=== PATIENT | female | born 1995 | race Two or more races ===

== ENCOUNTER 2024-05-02 19:43 | Emergency (ER) | payer OTHER ==
[~2024-05-02] VITALS: Ht 167.6 cm; Wt 54.0 kg
--- NOTE | 2024-05-02 20:14 | ED.PDOC ---
General HPI Comments A 29 year old female presents to the ED with a chief complaint of painful urination onset 3 days. Patient states she began experiencing painful urination with a burning sensation 3 days ago, fever yesterday. Patient noticed vaginal discharge today as well as blood in urine. She experienced similar symptoms about 6 months ago. Denies any past medical history as well as back pain, flank pain, nausea, vomiting, diarrhea, chest pain and shortness of breath. No other symptoms or modifying factors present at this time. Time Seen by MD: 20:01 Reviewed notes: Medications, Allergies Allergies: Coded Allergies: NO KNOWN ALLERGIES (Unverified , 05/02/24) Information Source: Patient Mode of Arrival: Ambulatory Severity: Moderate Timing: Days Duration: Since onset Prehospital treatment: None Symptoms: Dysuria, Hematuria History of: UTI Location: Suprapubic Modifying factors: None associated signs and symptoms: Fever, Dysuria, Hematuria Vital Signs Vital Signs Date Time Temp Pulse Resp B/P (MAP) Pulse Ox O2 Delivery O2 Flow Rate FiO2 05/02/24 22:53 97.4 87 15 111/71 (84) 99 97.4 Physical Exam General: Awake, alert and oriented. No acute distress. Skin: Skin in warm, dry and intact. Appropriate color for ethnicity. Nailbeds pink with no cyanosis. HEENT: The head is normocephalic and atraumatic. Conjunctivae are clear without exudates or hemorrhage. Sclera is non-icteric. EOM are intact. No signs of nystagmus. Eyelids are normal in appearance without swelling or lesions. Oral mucosa is pink and moist Neck: The neck is supple with normal range of motion. No JVD. Cardiac: Heart rate and rhythm are normal. No murmurs, gallops, or rubs are auscultated. Respiratory: No signs of respiratory distress. Lung sounds are clear in all lobes bilaterally without rales, ronchi, or wheezes. Abdominal: Abdomen is soft, non-tender without distention. Bowel sounds are present and normoactive in all four quadrants. No CVA tenderness Neurological: The patient is awake, alert and oriented to person, place, and time with normal speech. Speech is clear. There is no facial asymmetry. Psychiatric: Appropriate mood and affect. Good judgement and insight. No visual or auditory hallucinations. Review of Systems: REVIEW OF SYSTEMS: No fever, no chills, or fatigue HEENT: No sore throat, no earache, no congestion, no neck pain. Cardiac: No chest pain. No palpitations. Lungs: No shortness of breath, no cough. GI: No nausea, no vomiting, no diarrhea, no constipation, no abdominal pain : Positive dysuria, frequency, or urgency. Positive hematuria. Positive vaginal discharge Musculoskeletal: No joint pain , no joint swelling, no extremity edema. Skin: No rash, no itching. Neuro: No headache, no dizziness, no weakness Past Medical History PAST MEDICAL HISTORY: Denies Surgical History: Denies all surgeries [employer] History: No Pertinent [employer] History Family History Family History: Unknown Social History Smoker: Non-Smoker Alcohol: Denies ETOH Use Drugs: Denies Drug Use Lives In: Home Was a procedure done? Was a procedure done?: No Differential Diagnosis Kidney stone (Female): Bowel obstruction, Ovarian torsion, Pyelonephritis, Renal failure, Urinary obstruction, Urolithiasis, Other (Vaginitis, S2 GI) Kidney stone (Male): Urinary tract infection X-Ray, Labs, Meds, VS Vital Signs Date Time Temp Pulse Resp B/P (MAP) Pulse Ox O2 Delivery O2 Flow Rate FiO2 05/02/24 22:53 97.4 87 15 111/71 (84) 99 97.4 05/02/24 20:05 98.9 89 20 122/79 (93) 99 Lab Test 05/02/24 20:34 05/02/24 20:30 Range/Units Urine Color Dark-orange Yellow Urine Clarity Turbid H Clear Urine pH 5.5 5.0-9.0 Urine Specific [place] 1.022 1.001-1.035 Urine Protein 1+ H Negative Urine Ketones Negative Negative Urine Blood 3+ H Negative /uL Urine Nitrite 2+ H Negative Urine Bilirubin 1+ H Negative Urine Urobilinogen 3 H Negative mg/dL Urine Leukocyte Esterase 2+ Negative /uL Urine RBC 111 0 - 4 /hpf Urine WBC 162 0 - 5 /hpf Urine Squamous Epithelial Cells Few <5 /hpf Urine Bacteria Few H None Seen /hpf Urine Mucus Few None Seen Urine Glucose Normal Normal mg/dL Urine Test Negative Negative Chlamydia trachomatis (LUCERO) Pending Neisseria gonorrhoeae (LUCERO) Pending White Blood Count 5.9 4.4-10.8 10^3/uL Red Blood Count 4.05 4.0-5.20 10^6/uL Hemoglobin 12.4 12.2-16.2 g/dL Hematocrit 36.6 36.0-46.0 % Mean Corpuscular Volume 90.5 80.0-100.0 fL Mean Corpuscular Hemoglobin 30.6 28.0-32.0 pg Mean Corpuscular Hemoglobin Concent 33.8 32.0-36.0 g/dL Red Cell Distribution Width 13.1 11.8-14.3 % Platelet Count 259 140-450 10^3/uL Mean Platelet Volume 7.0 6.9-10.8 fL Neutrophils (%) (Auto) 50.2 37.0-80.0 % Lymphocytes (%) (Auto) 36.9 10.0-50.0 % Monocytes (%) (Auto) 9.9 0.0-12.0 % Eosinophils (%) (Auto) 2.5 0.0-7.0 % Basophils (%) (Auto) 0.5 0.0-2.0 % Neutrophils # (Auto) 3.0 1.6-8.6 10 ^3/uL Lymphocytes # (Auto) 2.2 0.4-5.4 10 ^3/uL Monocytes # (Auto) 0.6 0-1.3 10 ^3/uL Eosinophils # (Auto) 0.2 0-0.8 10 ^3/uL Basophils # (Auto) 0 0-0.2 10 ^3/uL Nucleated Red Blood Cells 0.1 % Sodium Level 140 136-145 mmol/L Potassium Level 3.6 3.5-5.1 mmol/L Chloride Level 108 H 98-107 mmol/L Carbon Dioxide Level 26 20-31 mmol/L Anion Gap 6 5-15 Blood Urea Nitrogen 10 9-23 mg/dL Creatinine 0.63 0.550-1.02 mg/dL Glomerular Filtration Rate Calc 122 >90 mL/min BUN/Creatinine Ratio 15.9 10.0-20.0 Serum Glucose 97 74-106 mg/dL Calcium Level 9.6 8.7-10.4 mg/dL Total Bilirubin 0.2 0.2-1.0 mg/dL Aspartate Amino Transferase (AST) 13 13-40 U/L Alanine Aminotransferase (ALT) 15 7-40 U/L Alkaline Phosphatase 73 46-116 U/L Total Protein 7.6 5.7-8.2 g/dL Albumin 4.6 3.2-4.8 g/dL Time of 1ST Reevaluation: 20:31 Reevaluation 1ST: Unchanged Patient Education/Counseling: Diagnosis, Treatment, Prognosis Family Education/Counseling: No Family Present Additional Information HI Data Complexity Ordered Test: LAB, MARVIN, PHA reviewed results: CBC, CMP, PREGUA, UA, Routine bacteria culture, chlamydia Discuss tx/results: patient, medical personnel Departure 1 Departure Time of Disposition: 23:04 Impression: Primary Impression: Urinary tract infection Disposition: 01 HOME / SELF CARE / HOMELESS Condition: Stable Additional Instructions: [employer]ARTIN [employer] Urgencias Instrucciones: Thais atentamente todas las instrucciones proporcionadas en ania paquete. Aunque le hayan dado el jose martin del Departamento de Emergencias, esto no significa que tenga un "certificado de buena jorge". Es posible que ests en proceso de desarrollar mauricio enfermedad grave. Es por eso que debe regresar al servicio de urgencias sin falta si presenta algn sntoma nuevo o que empeora (especialmente si alla sntomas incluyen dolor en el pecho, dificultad para respirar, dolor abdominal, fiebre, dolor de rasta, confusin, dificultad para greg o caminar). Tambin es muy importante que consulte a un mdico de atencin primaria dentro de los prximos 3 a 5 flores para realizar un seguimiento. Si no tiene un mdico habitual Llame para programar mauricio wilson con un nuevo proveedor de atencin primaria. [phone] Dr[address] In[address] o Dr[address] Sanchez Mikaela Si no puede conseguir mauricio wilson, regrese al servicio de urgencias para mauricio nueva evaluacin. Educacin para el paciente: Infecciones de las vas urinarias en adultos (Conceptos Bsicos) ? Riones Son dos rganos con forma de frijol que filtran la reji para producir orina. ? Vejiga Es un rgano con forma de globo que almacena la orina. ? Urteres Son dos tubos que llevan la orina desde los riones a la vejiga. ? Uretra Es el tubo que lleva la orina desde la vejiga al exterior del cuerpo. Las infecciones en la vejiga son ms comunes que las infecciones en los riones. Se producen cuando entran bacterias en la uretra y se desplazan hacia arriba, hasta la vejiga. El trmino mdico para referirse a mauricio infeccin en la vejiga es "cistitis". La mayora de las veces, cuando las personas hablan de mauricio infeccin de las vas urinarias, se refieren a mauricio infeccin de la vejiga. ? Las infecciones de rin ocurren cuando las bacterias se desplazan incluso ms arriba, hasta los riones. El trmino mdico para referirse a mauricio infeccin en los riones es ? Tanto las infecciones en la vejiga gilda en los riones son ms comunes en las personas de sexo femenino que en las de sexo masculino. El riesgo de infecciones de las vas urinarias tambin es mayor en personas que tienen un catter urinario. Un catter es un tubo flannery y flexible que drena orina de la vejiga. Podra usarse en personas hospitalizadas que no pueden orinar de manera normal. Cules son los sntomas de mauricio infeccin en la vejiga? Los sntomas son, entre otros: Cules son los sntomas de mauricio infeccin en el rin? Los sntomas de mauricio infeccin en el rin pueden incluir los mismos sntomas urinarios que se presentan con mauricio infeccin en la vejiga. Adems, las infecciones en el rin pueden causar: Es necesario que me realice pruebas? Jez vez. Si piensa que podra tener mauricio infeccin de las vas urinarias, llame a giles mdico o enfermero. En ocasiones, puede determinar si usted tiene mauricio infeccin de las vas urinarias con solo conocer alla sntomas. Giles mdico o enfermero podra hacerle mauricio simple prueba de orina en el consultorio. Tambin es posible que le gerald mauricio prueba de orina ms compleja para detectar bacterias. "pielonefritis". Es ms grave que mauricio infeccin de la vejiga, y puede provocar otros problemas graves si no se trata adecuadamente. ? Dolor o ardor al orinar ? Necesidad de orinar con frecuencia ? Necesidad de orinar en forma repentina o urgente ? Reji en la orina ? Fiebre ? Dolor de espalda ? Nuseas o vmitos [facility] [employer] se tratan las infecciones de las vas urinarias? La mayora de las infecciones de las vas urinarias se tratan con pldoras de antibiticos. Actan matando los grmenes que causan la infeccin. Alla sntomas deberan mejorar al da siguiente de estar tomando antibiticos, mila debe terminar todas las pldoras. De lo contrario, la infeccin podra regresar. Si es necesario, tambin puede ashia mauricio medicina para anestesiar giles vejiga. Esta medicina disminuye el dolor que causan las infecciones de las vas urinarias. Tambin reduce el deseo de orinar. Qu pasa si sufro infecciones frecuentes en la vejiga? [place]mira, consulte a giles mdico o enfermero para verificar si realmente se trata de infecciones en la vejiga. Los sntomas de mauricio infeccin en la vejiga pueden ser causados por otras cosas. El mdico o enfermero querr greg si esos problemas pueden estar causando alla sntomas. Si giles mdico confirma que usted tiene infecciones frecuentes, hay cosas que puede hacer para evitarlas. Por ejemplo: Otras cosas que podran ser tiles son: Si tiene maruicio infeccin en la vejiga, probablemente tenga que ashia antibiticos david 3 a 7 flores. ? Si tiene mauricio infeccin en los riones, probablemente necesite ashai antibiticos ms tiempo. Algunas personas deben tomarlos advid 10 flores. Si tiene mauricio infeccin en los riones, tambin es posible que necesite recibir tratamiento en el hospital. ? ? Beber ms lquido Schlater puede ayudar a prevenir las infecciones en la vejiga. Estrgeno vaginal Si ya escobedo tenido la menopausia, el mdico podra sugerir ania tratamiento. El estrgeno vaginal viene en forma de crema o anillo flexible que se coloca en la vagina. Puede ayudar a prevenir las infecciones en la vejiga. ? Evitar los espermicidas (cremas o geles que gary el esperma) Los espermicidas son un mtodo de planificacin familiar. Al parecer, aumentan el riesgo de tener infecciones en la vejiga para algunas personas de sexo femenino, especialmente en aquellas que usan un ? Si tiene muchas infecciones en la vejiga y los mtodos anteriores no saunders dado resultado, hable con giles mdico sobre qu ms puede hacer para prevenir las infecciones. Ashia un antibitico todos los flores o despus de tener relaciones sexuales puede ayudar a prevenir infecciones en la vejiga. Sin embargo, el uso de antibiticos a marika plazo tiene desventajas, por lo que generalmente los mdicos elmira sugieren otros mtodos, gilda por ejemplo: Pueden otros productos prevenir las infecciones en la vejiga? Algunas personas se preguntan sobre otros productos "naturales" que dicen ayudar a prevenir las infecciones en la vejiga, gilda pldoras de probiticos, vitamina Cy D- manosa. No se cuenta con mauricio prueba firme de que estos productos den resultado. Sin embargo, tampoco hay pruebas claras de que nestor perjudiciales. Si tiene preguntas sobre estos u otros productos, hable con giles mdico o enfermero. Ms informacin sobre ania jose antonio Educacin para el paciente: Infeccin de las vas urinarias Instrucciones para el jose martin (Conceptos Bsicos) Educacin para el paciente: Infecciones de las vas urinarias en el embarazo (Conceptos Bsicos) Educacin para el paciente: Reji en la orina (hematuria) en adultos (Conceptos Bsicos) Educacin para el paciente: Bacteriuria asintomtica (Conceptos Bsicos) Educacin para el paciente: Espasmo vesical (Conceptos Bsicos) Educacin para el paciente: Infeccin por betalactamasa de espectro extendido (Conceptos Bsicos) diafragma. Si usa espermicidas y tiene muchas infecciones en la vejiga, podra ser conveniente que cambie a otro mtodo de planificacin familiar. Orinar despus de tener relaciones sexuales Algunos mdicos piensan que esto ayuda a expulsar los grmenes que pueden elvira ingresado a la vejiga david la relacin sexual. No hay evidencia de que esto funcione, mila tampoco puede hacer orlando. ? Metenamina (monroe comercial: Hiprex) Es mauricio pldora que se nazario todos los flores. Modifica la orina para dificultar el crecimiento de bacterias. Funciona delma dao deepti gilda los antibiticos para prevenir infecciones en la vejiga. ? Jugo de arndanos u otros derivados del arndano Podran ayudar a prevenir o tratar las infecciones en la vejiga, mila los mdicos no saben cul es la mejor dosis. ? e-Prescriptions Phenazopyridine Hcl (EQ URINARY PAIN RELIEF) 95 Mg Tab 95 MG OR TID for 2 Days, #6 TAB After meals as needed for burning Prov: EL GOODEN MD 05/02/24 Cephalexin (KEFLEX CAPSULE) 250 Mg Cp 1 CAP PO QID for 5 Days, #28 CAP Prov: EL GOODEN MD 05/02/24 Comments [age] year old female with dysuria, hematuria and UTI. Patient is well- appearing, nontoxic. Vital signs stable. We will treat with course of antibiotics. Patient is felt stable for discharge home. Patient advised to follow up with primary care provider promptly and return to the emergency department with any new, worsening or concerning symptoms. I reviewed the following notes from the pt's past medical encounters: No previous records available for review The following tests were ordered, and results were reviewed by me: CBC, CMP, urinalysis Additional information was gathered from interviewing the following independent historians N/A I reviewed and agreed with the following test results read by other providers: (N/A I discussed treatments and results with medical personnel and: Patient Critical Care Note Critical Care Time?: No Stability Stability form required: No I personally scribed for EL GOODEN MD ([email or web address]) on 05/02/24 at 20:14. Electronically submitted by Nora Lam ([email or web address]). I personally scribed for EL GOODEN MD ([email or web address]) on 05/02/24 at 20:43. Electronically submitted by Nora Lam ([email or web address]). EL GOODEN MD May 02, 2024 20:14
[2024-05-02 20:44] LABS: Basophils # (auto) 0 10 ^3/uL (0-0.2); Basophils % (auto) 0.5 % (0.0-2.0); Eosinophils # (auto) 0.2 10 ^3/uL (0-0.8); Eosinophils % (auto) 2.5 % (0.0-7.0); Hematocrit 36.6 % (36.0-46.0); Hemoglobin 12.4 g/dL (12.2-16.2); Lymphocytes # (auto) 2.2 10 ^3/uL (0.4-5.4); Lymphocytes % (auto) 36.9 % (10.0-50.0); Mean Corpuscular Hemoglobin 30.6 pg (28.0-32.0); Mean Corpuscular Hgb Conc. 33.8 g/dL (32.0-36.0); Mean Corpuscular Volume 90.5 fL (80.0-100.0); Monocytes # (auto) 0.6 10 ^3/uL (0-1.3); Monocytes % (auto) 9.9 % (0.0-12.0); Neutrophils % (auto) 50.2 % (37.0-80.0); Nucleated Red Blood Cells % 0.1 %; Platelet Count (auto) 259 10^3/uL (140-450); Red Blood Cells 4.05 10^6/uL (4.0-5.20); Red Cell Distribution Width 13.1 % (11.8-14.3); White Blood Cell 5.9 10^3/uL (4.4-10.8)
[2024-05-02 21:02] LABS: Alanine Aminotransferase 15 U/L (7-40); Albumin 4.6 g/dL (3.2-4.8); Alkaline Phosphatase 73 U/L (46-116); Anion Gap 6 (5-15); BUN/Creatinine Ratio 15.9 (10.0-20.0); Blood Urea Nitrogen 10 mg/dL (9-23); Calcium 9.6 mg/dL (8.7-10.4); Carbon Dioxide 26 mmol/L (20-31); Glucose 97 mg/dL (74-106); Potassium 3.6 mmol/L (3.5-5.1); Sodium 140 mmol/L (136-145)
[2024-05-02 21:03] LABS: Total Protein 7.6 g/dL (5.7-8.2)
[2024-05-02 21:15] LABS: Aspartate Aminotransferase 13 U/L (13-40); Bilirubin, Total 0.2 mg/dL (0.2-1.0); Chloride 108 mmol/L (98-107)
[2024-05-02 21:22] LABS: Urine Bacteria FEW /hpf (None Seen); Urine Blood 3+ /uL (Negative); Urine Clarity Turbid (Clear); Urine Color Dark-Orange (Yellow); Urine Mucus FEW (None Seen); Urine Protein, UAD 1+ (Negative); Urine Specific Gravity 1.022 (1.001-1.035); Urine Urobilinogen 3 mg/dL (Negative); Urine WBC 162 /hpf (0 - 5); Urine pH 5.5 (5.0-9.0)
[2024-05-02 22:53] VITALS: TEMP 97.4
[2024-05-02] MEDS ORDERED: CEPH250C PO (23:08)
[2024-05-02] MEDS ORDERED: PHEN95TA17 OR (23:08)
[2024-05-02] MEDS: ACETAMINOPHEN 325 MG TAB PO ONE (23:57)
[2024-05-02] MEDS: PHENAZOPYRIDINE HCL 100 MG TAB PO ONE (23:57)
[2024-05-02 23:58] VITALS: BP 121/79; PULSE 73; RESP 16; O2SAT 98
[2024-05-04 13:07] LABS: Chlamydia Trachomatis, NAA Negative (Negative); Neisseria gonorrhoeae, NAA Negative (Negative)
== END 2024-05-02 23:59 | disposition home or self-care (01) ==
LOC: ER 19:43
DX: N39.0 Urinary tract infection, site not specified (principal); N89.8 Other specified noninflammatory disorders of vagina; Z32.02 Encounter for pregnancy test, result negative
CPT/HCPCS: 36415; 80053; 81001; 81025; 85025